=== PATIENT | male | born 1970 | race Caucasian/White ===

== ENCOUNTER 2018-05-24 14:44 | Emergency (ER) | payer OTHER ==
[2018-05-24] MEDS: IBUPROFEN 800 MG TAB PO (15:35)
== END 2018-05-24 17:46 | disposition home or self-care (01) ==
LOC: M ED 14:44
DX: S22.42XA Multiple fractures of ribs, left side, initial encounter for closed fracture (principal); W01.198A Fall on same level from slipping, tripping and stumbling with subsequent striking against other object, initial encounter; Y92.59 Other trade areas as the place of occurrence of the external cause; Y99.0 Civilian activity done for income or pay
CPT/HCPCS: 71046